=== PATIENT | female | born 1985 ===

== ENCOUNTER 2018-02-07 11:35 | Outpatient (RCR) | payer OTHER | END 2018-05-08 | disposition home or self-care (01) | LOC: WSOH | DX: T20.10XA Burn of first degree of head, face, and neck, unspecified site, initial encounter (principal); X12.XXXA Contact with other hot fluids, initial encounter; Y92.214 College as the place of occurrence of the external cause; Y99.0 Civilian activity done for income or pay ==

== ENCOUNTER → 2020-05-27 | Outpatient (CLI) | payer OTHER | LOC: ZCOL.LAB 19:46 | DX: Z20.828 Contact with and (suspected) exposure to other viral communicable diseases (principal) ==

== ENCOUNTER → 2022-08-31 | Outpatient (CLI) | payer BC | LOC: COL.RAD 15:05 | DX: N83.201 Unspecified ovarian cyst, right side (principal); R93.89 Abnormal findings on diagnostic imaging of other specified body structures ==